=== PATIENT | female | born 1985 | race Caucasian/White ===

== ENCOUNTER 2016-11-08 09:03 | Outpatient (CLI) | payer OTHER ==
[~2016-11-08] VITALS: Ht 162.6 cm; Wt 90.9 kg
[~2016-11-08 09:03] MED LIST: NAPROXEN500 MG PO; PRENATAL TABLE1 EAC3 PO
[2016-11-08] MEDS ORDERED: PRENATAL TABLE1 EAC3 PO (10:43)
[2016-11-08 11:56] VITALS: BP 141/67
[2016-11-08 12:54] VITALS: BP 113/57
[2016-11-08 15:08] VITALS: BP 122/57
== END 2016-11-08 15:50 | disposition home or self-care (01) ==
LOC: EME 09:03 → EDSTATUS 11:15 → LDRP-OP 11:17 → 2WEST 11:18
DX: O9A.213 Injury, poisoning and certain other consequences of external causes complicating pregnancy, third trimester (principal); M54.5 Low back pain; Z3A.31 31 weeks gestation of pregnancy; V49.40XA Driver injured in collision with unspecified motor vehicles in traffic accident, initial encounter; Y92.410 Unspecified street and highway as the place of occurrence of the external cause
CPT/HCPCS: 59025; 76805; 85460; G0378

== ENCOUNTER 2016-11-09 15:57 | Outpatient (CLI) | payer OTHER ==
[~2016-11-09] VITALS: Ht 157.5 cm; Wt 91.0 kg
[2016-11-09 16:12] VITALS: BP 122/58
== END 2016-11-09 18:10 | disposition home or self-care (01) ==
LOC: LDRP-OP → 2WEST 15:59 → LDRP-OP 02-08 12:27
DX: O9A.212 Injury, poisoning and certain other consequences of external causes complicating pregnancy, second trimester (principal); R10.9 Unspecified abdominal pain; Y92.410 Unspecified street and highway as the place of occurrence of the external cause; Z3A.17 17 weeks gestation of pregnancy; V49.40XA Driver injured in collision with unspecified motor vehicles in traffic accident, initial encounter
CPT/HCPCS: 59025; G0378

== ENCOUNTER 2017-01-03 08:05 | Inpatient (IN) | payer OTHER ==
[2017-01-03] VITALS (34 sets, daily range): BP systolic 107–132; BP diastolic 53–77
[~2017-01-03] VITALS: Ht 162.6 cm; Wt 95.5 kg
[2017-01-03 10:13] LABS: EOSINOPHIL (%) 0.4 % (0-5); EOSINOPHIL COUNT 0.1 K/uL (0-0.3); HEMATOCRIT 35.6 % (36.0-46.0); IMMATURE GRANULOCYTE (%) 0.6 % (0.0-0.7); IMMATURE GRANULOCYTE COUNT 0.1 K/uL; INSTRUMENT ABS NEUTROPHIL CT 9.9 K/uL; LYMPHOCYTE COUNT 1.5 K/uL (1.0-2.8); MCH 31.4 PG (29.0-34.0); MCHC 34.3 G/DL (30.0-36.0); MCV 91.8 FL (83-99); MEAN PLAT.VOLUME 10.4 uM^3 (9.5-12.4); MONOCYTE (%) 7.9 % (3-12); NEUTROPHIL (%) 78.6 % (45-76); NEUTROPHIL COUNT 9.9 K/uL (1.8-6.4); PLATELET COUNT 244 K/uL (156-360); RBC DIS.WIDTH-CV 14.5 % (11.8-14.6); RBC DIS.WIDTH-SD 48.6 % (39-53); RED BLOOD COUNT 3.88 M/uL (3.80-5.20); WHITE BLOOD COUNT 12.6 K/uL (4.1-10.2)
[2017-01-03] MEDS ORDERED: IBUPROFEN800 MG PO (22:51)
[2017-01-04 00:45] VITALS: BP 135/64
[2017-01-04 02:20] VITALS: BP 129/58
[2017-01-04 07:07] VITALS: BP 122/68
[2017-01-04 15:00] VITALS: BP 114/66
[2017-01-04 23:15] VITALS: BP 136/79
[2017-01-05 07:12] VITALS: BP 125/68
== END 2017-01-05 13:56 | disposition home or self-care (01) | DRG 775 ==
LOC: LDRP-OP 08:05 → 2WEST 08:06 → LDRP-OP 14:38 → 2WEST 22:20 → LDRP-OP 02-08 21:00
PROVIDERS: Nurse Practitioner
PROC: 10907ZC Drainage of Amniotic Fluid, Therapeutic from Products of Conception, Via Natural or Artificial Opening (ICD-10-PCS; principal; 2017-01-03)
PROC: 3E033VJ Introduction of Other Hormone into Peripheral Vein, Percutaneous Approach (ICD-10-PCS; principal; 2017-01-03)
PROC: 3E0S3CZ (ICD-10-PCS; principal; 2017-01-03)
PROC: 10E0XZZ Delivery of Products of Conception, External Approach (ICD-10-PCS; principal; 2017-01-03)
PROC: 00HU33Z Insertion of Infusion Device into Spinal Canal, Percutaneous Approach (ICD-10-PCS; principal; 2017-01-03)
DX: O40.3XX0 Polyhydramnios, third trimester, not applicable or unspecified (principal); O66.0 Obstructed labor due to shoulder dystocia; O36.63X0 Maternal care for excessive fetal growth, third trimester, not applicable or unspecified; O99.214 Obesity complicating childbirth; E66.9 Obesity, unspecified; Z68.32 Body mass index [BMI] 32.0-32.9, adult; Z3A.39 39 weeks gestation of pregnancy; Z37.0 Single live birth; Z87.891 Personal history of nicotine dependence
CPT/HCPCS: 85025; C1755; J3010; J7120